=== PATIENT | female | born 2000 | race American Indian/Alaskan Native ===

== ENCOUNTER 2020-09-06 12:24 | Emergency (ER) | payer MEDICAID ==
--- NOTE | 2020-09-06 13:21 | Emergency Department Report ---
ED N/V/D HPI - General Stated complaint: FAILURE TO THRIVE Time Seen by Provider: 09/06/20 13:17 Source: EMS - History of Present Illness Initial comments: 20-year-old female, history of cyclical vomiting syndrome, failure to thrive, depression, bipolar disorder, presents to ER for evaluation. Patient went to her psychiatrist's office but then subsequently refused to answer any of his questions. Patient was sent to the ED after being placed on a 1013 by her psychiatrist. Patient is currently moaning very loudly, able to be heard throughout the ER, and, is refusing to answer any questions. Patient's behavioral aide, Donovan Masterson, is here at bedside. She states this is normal behavior for patient whenever she comes to the ER. States patient has verbalized suicidal ideation and wanting to . Patient has been refusing to eat and refusing IV hydration. Behavioral aid states that patient has had feeding tubes in the past. Patient experiences vomiting and abdominal pain secondary to her cyclical vomiting syndrome. After arrival of her behavioral aide, Donovan, patient has stopped moaning. She appears to be texting or using her cell phone in some capacity. Patient refuses to answer any of my questions even in the presence of her behavioral aide. Her aide did tell me that patient requested some ice chips. She also told me that patient has not been taking her bipolar medications. MD complaint: nausea, vomiting, abdominal pain -: This morning ED Review of Systems ROS: Stated complaint: FAILURE TO THRIVE Other details as noted in [facility] ED Course Vital Signs 09/06/20 14:06 Temperature 98.8 F Pulse Rate 104 H Respiratory 20 Rate Blood Pressure 102/76 [Left] O2 Sat by Pulse 97 Oximetry Critical care attestation.: If time is entered above; I have spent that time in minutes in the direct care of this critically ill patient, excluding procedure time. ED Disposition Condition: Stable
--- NOTE | 2020-09-06 14:14 | Emergency Department Report ---
<TOOVINHGINNY Sanchez - Last Filed: 09/06/20 15:51> ED Psych HPI - General Chief Complaint: Nausea/Vomiting/Diarrhea Stated Complaint: FAILURE TO THRIVE Time Seen by Provider: 09/06/20 13:17 Source: EMS Mode of arrival: Stretcher - History of Present Illness Initial Comments: 20-year-old female, history of cyclical vomiting syndrome, failure to thrive, de pression, bipolar disorder, presents to ER for evaluation. Patient went to her psychiatrist's office but then subsequently refused to answer any of his questions. Patient was sent to the ED after being placed on a 1013 by her psychiatrist. Patient is currently moaning very loudly, able to be heard throughout the ER, and, is refusing to answer any questions. Patient's behavioral aide, Donovan Masterson, is here at bedside. She states this is normal behavior for patient whenever she comes to the ER. States patient has verbalized suicidal ideation and wanting to . Patient has been refusing to eat and refusing IV hydration. Behavioral aid states that patient has had feeding tubes in the past. Patient experiences vomiting and abdominal pain secondary to her cyclical vomiting syndrome. After arrival of her behavioral aide, Donovan, patient has stopped moaning. She appears to be texting or using her cell phone in some capacity. Patient refuses to answer any of my questions even in the presence of her behavioral aide. Her aide did tell me that patient requested some ice chips. She also told me that patient has not been taking her bipolar medications. MD Complaint: suicidal ideation -: unknown Associated Psychiatric Symptoms: suicidal ideation Improves With: none Worsens With: none Context: not taking psychiatric, significant life stressor Associated Symptoms: nausea, vomiting Treatments Prior to Arrival: placed on mental he - Related Data Allergies Allergy/AdvReac Type Severity Reaction Status Date / Time No Known Allergies Allergy Unverified 09/06/20 17:13 ED Review of Systems Comment: Unobtainable due to pts medical conditions (pt refusing to answer any of my questions) Psychiatric: depression, suicidal thoughts ED Past Medical Hx - Past Medical History Previous Medical History?: Yes Hx Psychiatric Treatment: Yes (SI) - Social History Smoking Status: Unknown if ever smoked ED Physical Exam - General Limitations: No Limitations General appearance: alert, in no apparent distress, other (appears frail; pt is sucking her thumb) - Head Head exam: Present: atraumatic, normocephalic - Eye Eye exam: Present: normal appearance - ENT ENT exam: Present: mucous membranes moist - Neck Neck exam: Present: normal inspection - Respiratory Respiratory exam: Present: normal lung sounds bilaterally. Absent: respiratory distress - Cardiovascular Cardiovascular Exam: Present: normal rhythm, tachycardia - GI/Abdominal GI/Abdominal exam: Present: soft. Absent: distended, tenderness - Extremities Exam Extremities exam: Present: normal inspection - Neurological Exam Neurological exam: Present: alert, other (pt is moving all extremities; unable to evaluate orientation as she is refusing to speak) - Psychiatric Psychiatric exam: Present: flat affect - Skin Skin exam: Present: warm, dry, intact, normal color ED Course - Reevaluation(s) Reevaluation #1: 09/06/20 14:48 Patient now screaming and moaning again. Haldol 5 mg IM ordered. Reevaluation #2: 09/06/20 15:16 RN tells me that patient got up and drink water from the sink faucet in the room, then vomited. I had previously advised patient that we would give her some ice chips but no liquids to drink at this time. Patient drank from the sink anyway. Zofran ordered. Reevaluation #3: 09/06/20 15:51 Patient moaning and yelling again, being uncooperative. Laying upside down in stretcher. Removing her cardiac leads, BP cuff, and O2 sat monitor. No change with Haldol administration earlier. Will give Geodon as patient will need to be cooperative for CT scan. ED Medical Decision Making - Lab Data Result diagrams: 09/06/20 14:20 09/06/20 14:20 - Medical Decision Making Patient sent from psychiatrist office for her depression, suicidal ideations and refusal to eat or drink. Here in the ED, patient actually drank out of the sink when she was told that she would not be given anything to drink at that time, only a few ice chips. Labs are unremarkable. Patient's initial vital signs were normal, when she was calm. After patient's behavioral aide left her bedside, patient began to yell and scream again, thus becoming tachycardic. While yelling, patient is observed checking her cell phone. Labs do not show a ny evidence of dehydration from prolonged vomiting. CT abdomen/pelvis has been ordered. Patient will be signed out to Dr Abebe to f/u on CT results. If CT shows no acute findings, I feel that pt will be medically clear for mental health evaluation. ED Disposition Clinical Impression: Suicidal ideation, Psychogenic vomiting Disposition: DC-01 TO HOME OR SELFCARE Condition: Stable Additional Instructions: OUTPATIENT MENTAL HEALTH RESOURCES [facility], [facility] Joi Gilbert MD: [address] [place] [address] [place] [address] [facility]: [employer] [facility] [address] [place] [address] [place] [address] [phone] [facility]: [facility] Healthcare: [address] [facility] [address] [facility] [place] [address] [facility] [address] [facility]: Alessandro Quiros MD: [address] [facility] [address] [facility] [address] [facility]: [address] [place], [place] [id number] [phone] PR CRISIS AND ACCESS LINE: Referrals: DAVID MARTINEZ [Other] - 3-5 Days [place] GARCIA MD [Staff Physician] - 3-5 Days <LEE NOEL - Last Filed: 09/09/20 12:05> ED Review of Systems ROS: Stated complaint: FAILURE TO THRIVE Other details as noted in HPI ED Course Vital Signs 09/06/20 09/06/20 09/06/20 14:01 14:06 14:09 Temperature 98.8 F 98.8 F Pulse Rate 104 H 104 H Respiratory 22 20 20 Rate Blood Pressure 104/64 Blood Pressure 102/76 [Left] O2 Sat by Pulse 98 97 98 Oximetry 09/06/20 09/06/20 09/06/20 14:46 15:00 15:46 Temperature Pulse Rate 149 H 133 H 129 H Respiratory 22 22 13 Rate Blood Pressure 115/87 115/87 106/75 Blood Pressure [Left] O2 Sat by Pulse 99 88 96 Oximetry 09/06/20 09/06/20 09/06/20 16:00 16:16 16:30 Temperature Pulse Rate 125 H 128 H 108 H Respiratory 11 L 18 15 Rate Blood Pressure 91/73 135/86 135/86 Blood Pressure [Left] O2 Sat by Pulse 97 97 97 Oximetry 09/06/20 09/06/20 09/06/20 16:46 17:00 17:16 Temperature Pulse Rate 110 H 139 H 142 H Respiratory 15 16 13 Rate Blood Pressure 135/86 135/86 133/82 Blood Pressure [Left] O2 Sat by Pulse 99 100 99 Oximetry 09/06/20 09/06/20 09/06/20 17:30 17:46 18:16 Temperature Pulse Rate 112 H 117 H 113 H Respiratory 13 15 13 Rate Blood Pressure 133/82 133/82 123/74 Blood Pressure [Left] O2 Sat by Pulse 98 99 97 Oximetry 09/06/20 09/06/20 09/06/20 18:30 18:46 19:00 Temperature Pulse Rate 119 H 108 H 105 H Respiratory 15 13 14 Rate Blood Pressure 123/74 133/82 133/82 Blood Pressure [Left] O2 Sat by Pulse 100 98 97 Oximetry 09/06/20 09/06/20 09/06/20 19:37 19:46 20:00 Temperature Pulse Rate 135 H 103 H 101 H Respiratory 13 12 Rate Blood Pressure 116/60 116/60 116/60 Blood Pressure [Left] O2 Sat by Pulse 99 98 98 Oximetry 09/06/20 09/06/20 09/06/20 20:16 20:30 20:46 Temperature Pulse Rate 115 H 99 H 119 H Respiratory 17 14 21 Rate Blood Pressure 136/86 136/86 122/81 Blood Pressure [Left] O2 Sat by Pulse 98 97 99 Oximetry 09/06/20 09/06/20 09/07/20 21:00 21:17 03:35 Temperature 98.3 F Pulse Rate 115 H 99 H Respiratory 14 16 Rate Blood Pressure 122/81 122/81 Blood Pressure 121/80 [Left] O2 Sat by Pulse 98 73 L 99 Oximetry 09/07/20 09/07/20 09/08/20 09:13 19:35 08:57 Temperature 98.4 F 98.2 F 97.9 F Pulse Rate 90 90 81 Respiratory 20 16 18 Rate Blood Pressure Blood Pressure 143/83 123/73 112/58 [Left] O2 Sat by Pulse 98 97 97 Oximetry 09/08/20 09/09/20 19:45 06:30 Temperature 98.7 F 97.6 F Pulse Rate 80 85 Respiratory 18 18 Rate Blood Pressure Blood Pressure 100/64 97/54 [Left] O2 Sat by Pulse 99 99 Oximetry ED Medical Decision Making - Lab Data Result diagrams: 09/06/20 14:20 09/06/20 14:20 - Medical Decision Making I evaluated Arti. She is awake alert. She does not have any nausea. She has not vomited in 24 hours. I read my colleague's comprehensive note. On yesterday ED physician spoke with Shelli GI specialist and Lazaro dumpling machine operator. Patient has had NG tube in the past. However she did not tolerate the NG tube. Patient has an eating disorder which has been previously diagnosed and documented. Patient is quite educated insightful and honest. She states that she desires gastrostomy tube. She will follow-up outpatient with GI specialist. She is grateful and anxious to be discharged. She denies suicidal homicidal ideation. Critical care attestation.: If time is entered above; I have spent that time in minutes in the direct care of this critically ill patient, excluding procedure time. ED Disposition Is pt being admited?: No Does the pt Need Aspirin: No
[2020-09-06] MEDS ORDERED: SODIUM CHLORIDE 0.9% 1000 ML 1,000 ML IV ONE (14:17)
[2020-09-06] MEDS ORDERED: HALOPERIDOL LACTATE 5 MG/1 ML INJ IM ONE (14:47)
[2020-09-06 14:58] LABS: Basophils # (Auto) 0.1 K/mm3 (0.0-0.1); Basophils % (Auto) 0.6 % (0.0-1.8); Eosinophils % (Auto) 0.1 % (0.0-4.3); Hematocrit 45.1 % (30.3-42.9); Lymphocytes # (Auto) 2.7 K/mm3 (1.2-5.4); Lymphocytes % (Auto) 25.6 % (13.4-35.0); Mean Corpuscular HGB Conc 33 % (30-34); Mean Corpuscular Volume 87 fl (79-97); Monocytes # (Auto) 0.9 K/mm3 (0.0-0.8); Monocytes % (Auto) 8.1 % (0.0-7.3); Platelet Count 385 K/mm3 (140-440); Red Blood Count 5.19 M/mm3 (3.65-5.03); Red Cell Distribution Width 14.5 % (13.2-15.2)
[2020-09-06 15:03] LABS: Alanine Aminotransferase 9 units/L (7-56); Albumin 4.9 g/dL (3.9-5); Bilirubin,Direct 0.2 mg/dL (0-0.2)
[2020-09-06] MEDS ORDERED: ONDANSETRON 4 MG/2 ML INJ IV ONE (15:18)
[2020-09-06 15:31] LABS: Blood Urea Nitrogen 19 mg/dL (7-17); Calcium 9.9 mg/dL (8.4-10.2); Hemolysis Index 77
[2020-09-06 15:36] LABS: BUN/Creatinine Ratio 27
[2020-09-06] MEDS: ZIPRASIDONE MESYLATE 20 MG VIAL IM PRN (16:00)
[2020-09-06 18:28] LABS: Amphetamine Screen,Urine Negative; Benzodiazepines Screen,Urine Negative; Cannabinoid Screen,Urine Negative; Cocaine Screen,Urine Negative; Methadone Screen,Urine Negative; Opiate Screen,Urine Negative
--- NOTE | 2020-09-06 19:46 | Cat Scan Report ---
CT ABDOMEN AND PELVIS WITH CONTRAST HISTORY: Vomiting and abdominal pain COMPARISON: None TECHNIQUE: Routine abdominal and pelvic CT exam performed following intravenous contrast administrat ion.. All CT scans at this location are performed using CT dose reduction for ALARA by means of autom ated exposure control. FINDINGS: CT ABDOMEN: Lung Bases: No significant abnormality. Liver: No significant abnormality. Biliary: No significant abnormality. Spleen: No significant abnormality. Unenlarged. Pancreas: No significant abnormality. Adrenals: No significant abnormality. Kidneys: No significant abnormality. Lymphatics: No lymphadenopathy. Vasculature: No significant abnormality. Bowel/Peritoneum: No significant abnormality. No free air. No free fluid. Appendix not visualized. No pericecal inflammation. CT PELVIC: : No significant abnormality. Lymphatics: No lymphadenopathy. Osseous Structures: No aggressive appearing osseous lesions. Additional Findings: None IMPRESSION: 1. No acute findings. Signer Name: Johnny Heller MD Signed: 09/06/2020 7:41 PM Workstation Name: [id number]
[2020-09-06] MEDS ORDERED: fentaNYL 100 MCG/2 ML INJ IM ONE (23:41)
[2020-09-06] MEDS ORDERED: ONDANSETRON 4 MG/2 ML INJ IM ONE (23:42)
[2020-09-07] MEDS ORDERED: DEXTROSE/DEXTRIN/MALTOSE 24 GM CARB PER 31 GM TUBE ONE (05:25)
[2020-09-07] MEDS ORDERED: WATER FOR INJ Sterile (PF) 10 ML ONE ×2 (05:26→16:10)
[2020-09-07] MEDS: ZIPRASIDONE MESYLATE 20 MG VIAL IM PRN ×2 (05:33→16:22)
[2020-09-07] MEDS: ONDANSETRON 4 MG ODT TAB PO ONE ×3 (05:33→05:44)
--- NOTE | 2020-09-07 08:43 | Consultation ---
History of Present Illness - Reason for Consult Consult date: 09/07/20 Reason for consult: MHE Requesting physician: DEA DEAN - History of Present Psychiatric Illness Per ED PROVIDER: 20-year-old female, history of cyclical vomiting syndrome, failure to thrive, depression, bipolar disorder, presents to ER for evaluation. Patient went to her psychiatrist's office but then subsequently refused to answer any of his questions. Patient was sent to the ED after being placed on a 1013 by her psychiatrist. Patient is currently moaning very loudly, able to be heard throughout the ER, and, is refusing to answer any questions. Patient's behavioral aide, Donovan Masterson, is here at bedside. She states this is normal behavior for patient whenever she comes to the ER. States patient has verbalized suicidal ideation and wanting to . Patient has been refusing to eat and refusing IV hydration. Behavioral aid states that patient has had feeding tubes in the past. Patient experiences vomiting and abdominal pain secondary to her cyclical vomiting syndrome. After arrival of her behavioral aide, Donovan, patient has stopped moaning. She appears to be texting or using her cell phone in some capacity. Patient refuses to answer any of my questions even in the presence of her behavioral aide. Her aide did tell me that patient requested some ice chips. She also told me that patient has not been taking her bipolar medications. PSYCH HPI Patient seen in the room patient is seen making humming sounds, throwing up in a green plastic bag and not communicating/refusing to communicate at this moment. PAST PSYCHIATRIC HISTORY n/a PAST MEDICAL HISTORY: n/a Family Psychiatric History: None reported or documented SOCIAL HISTORY n/a REVIEW OF SYSTEMS ROS cannot be reliably obtained from the patient due to her confusion MENTAL STATUS EXAMINATION General Appearance and Behavior: Age appropriate, good hygiene, wearing appropriate clothes, good eye contact, uncooperative with questioning. Cooperation: Withdrawn Psychomotor Behavior: unremarkable and within normal limits Mood: Neutral Affect and affective range: Flat Thought Process:N/A Thought Content: N/A Speech: Normal volume, Regular rate and rhythm Intellectual Functioning: N/A Suicidal Ideation: N/A l Homicidal Ideation: N/A Impulse Control: Impaired Insight and Judgment: Impaired Memory: N/A Attention: Normal, Orientation: Alert Diagnoses: Schizoaffective disorder Treatment Plan Patient with multiple psychiatric issues, presenting with failure to thrive refusal to eat. Patient caregiver reports patient voiced suicidal intention. Patient needs both medical and psychiatric management at this time, due to her refusal to eat. MEDICATIONS: Risks, benefits and alternatives of medications discussed with the patient, questions answered and consent obtained from patient. PSYCHOTHERAPY: Supportive psychotherapy provided MEDICAL: Per primary team DELIRIUM PRECAUTIONS: Please re-orient patient frequently, keep lights on during the day, and minimize benzodiazepines and opiates as these medications could worsen patient's confusion. DIRECTOR COMMUNITY ORGANIZATION DISPOSITION: Recommending psychiatric admission but patient may also need medical follow-up if refusal to eat is persistent at this time. Case discussed with Dr. Cast who agrees with current disposition LEGAL STATUS: 1013 FOLLOW-UP: Will follow Thank you for the consult. Please contact with any questions and/or concerns. Medications and Allergies Allergies Allergy/AdvReac Type Severity Reaction Status Date / Time No Known Allergies Allergy Unverified 09/06/20 17:13 Active Meds: Active Medications Ziprasidone (Ziprasidone Mesylate 20 Mg Vial) 10 mg IM ONCE PRN PRN Reason: Agitation Last Admin: 09/07/20 05:33 Dose: 10 mg Documented by: Mental Status Exam - Vital signs Last Vital Signs Temp 98.3 F 09/07/20 03:35 Pulse 99 H 09/07/20 03:35 Resp 16 09/07/20 03:35 BP 121/80 09/07/20 03:35 Pulse Ox 99 09/07/20 03:35 Results Result Diagrams: 09/06/20 14:20 09/06/20 14:20 Abnormal lab results 09/06/20 09/06/20 09/06/20 Range/Units 14:20 14:20 14:20 RBC 5.19 H (3.65-5.03) M/mm3 Hgb 15.0 H (10.1-14.3) gm/dl Hct 45.1 H (30.3-42.9) % Sutter % (Auto) 8.1 H (0.0-7.3) % Sutter # (Auto) 0.9 H (0.0-0.8) K/mm3 Chloride 94.8 L (98-107) mmol/L BUN 19 H (7-17) mg/dL Salicylates 0.3 L (2.8-20.0) mg/dL Acetaminophen (10.0-30.0) ug/mL 09/06/20 Range/Units 14:20 RBC (3.65-5.03) M/mm3 Hgb (10.1-14.3) gm/dl Hct (30.3-42.9) % Sutter % (Auto) (0.0-7.3) % Sutter # (Auto) (0.0-0.8) K/mm3 Chloride (98-107) mmol/L BUN (7-17) mg/dL Salicylates (2.8-20.0) mg/dL Acetaminophen 5.0 L (10.0-30.0) ug/mL All other labs normal.
[2020-09-07] MEDS ORDERED: LORazepam 2 MG/ML VIAL IM PRN (17:00)
[2020-09-07] MEDS ORDERED: HALOPERIDOL LACTATE 5 MG/1 ML INJ IM PRN (17:00)
[2020-09-07] MEDS ORDERED: DEXTROSE 50% IN WATER (25GM) 50 ML VIAL IV PRN (17:00)
--- NOTE | 2020-09-07 17:03 | Event Note ---
Date: 09/07/20 The patient was evaluated in the emergency department for symptoms described in the history of present illness. He/she was evaluated in the context of the global COVID-19 pandemic, which necessitated consideration that the patient might be at risk for infection with the virus that causes COVID-19. Institutional protocols and algorithms that pertain to the evaluation of patients at risk for COVID-19 are in a state of rapid change based on information released by regulatory bodies including the CDC and federal and state organizations. These policies and algorithms were followed during the patient's care in the emergency department. Please note that these policies, procedures and recommendations changed on a rapid basis. [id number] evaluation performed. I am peripherally familiar with this patient. I was present when this patient was present yesterday and under the care of Dr. Adkins. The patient was medically cleared yesterday. Patient throwing herself on the floor, not hitting her head, requiring multiple personnel to lift her up, yelling, thrashing around, not following commands, not responding to verbal techniques, show of force, or de-escalation techniques. She required initiation of seclusion precautions for safety of patient and staff. Patient at the moment breathing spontaneously, moving 4 extremities, agitated, but her presentation today appears to be similar from yesterday. As needed medications ordered. Accu-Chek every 4 hours ordered. As needed dextrose ordered.
--- NOTE | 2020-09-08 10:59 | Progress Note ---
Subjective - Reason for Consult Consult date: 09/08/20 Reason for consult: MHE Requesting physician: RAYRAY MIRANDA - Chief Complaint Chief complaint: PSYCH HPI Patient seen in the room, covered up in cloths, is alert but not willing to communicate, does not appear to be catatonic, seems to be able to control her behavior and she voiced "no" when i attempt to get the bed covers over her head. PAST PSYCHIATRIC HISTORY n/a PAST MEDICAL HISTORY: n/a Family Psychiatric History: None reported or documented SOCIAL HISTORY n/a REVIEW OF SYSTEMS ROS cannot be reliably obtained from the patient due to her confusion MENTAL STATUS EXAMINATION General Appearance and Behavior: Age appropriate, good hygiene, wearing appropriate clothes, good eye contact, uncooperative with questioning. Cooperation: Withdrawn Psychomotor Behavior: unremarkable and within normal limits Mood: Neutral Affect and affective range: Flat Thought Process:N/A Thought Content: N/A Speech: Normal volume, Regular rate and rhythm Intellectual Functioning: N/A Suicidal Ideation: N/A l Homicidal Ideation: N/A Impulse Control: Impaired Insight and Judgment: Impaired Memory: N/A Attention: Normal, Orientation: Alert Diagnoses: Schizoaffective disorder Treatment Plan Patient with multiple psychiatric issues, presenting with failure to thrive refusal to eat. Patient caregiver reports patient voiced suicidal intention. Patient needs both medical and psychiatric management at this time, due to her refusal to eat. May need inpatient medical with psych follow if continues to not eat or drink as placement would be difficult primarily for that reason. MEDICATIONS: Risks, benefits and alternatives of medications discussed with the patient, questions answered and consent obtained from patient. PSYCHOTHERAPY: Supportive psychotherapy provided MEDICAL: Per primary team DELIRIUM PRECAUTIONS: Please re-orient patient frequently, keep lights on during the day, and minimize benzodiazepines and opiates as these medications could worsen patient's confusion. SENIOR LEAD JAVA DEVELOPER DISPOSITION: Recommending psychiatric admission but patient may also need medical follow-up if refusal to eat is persistent at this time. Case discussed with Dr. Cast who agrees with current disposition LEGAL STATUS: 1013 FOLLOW-UP: Will follow Thank you for the consult. Please contact with any questions and/or concerns. Mental Status Exam - Vital signs Last Vital Signs Temp 97.9 F 09/08/20 08:57 Pulse 81 09/08/20 08:57 Resp 18 09/08/20 08:57 BP 112/58 09/08/20 08:57 Pulse Ox 97 09/08/20 08:57
[2020-09-08] MEDS ORDERED: ONDANSETRON 4 MG ODT TAB PO ONE (17:33)
--- NOTE | 2020-09-08 18:03 | Emergency Department Report ---
Blank Doc - Documentation Documentation: One 8-year-old female currently on a 1013. I was told that her state appointed guardian Jenn Morales was under the impression that the patient should be transferred for placement of a GJ tube at [facility]. Therefore, I spoke with Dr. Holloway who is the director of financial planning client resolution specialist for [facility]. He happened to be the director of financial planning at last cared for the patient in March 2020 when she was admitted. She has had multiple previous admissions to [facility] as well. At the time of her admission a G-tube or a J-tube was not recommended. An NG tube was not recommended. In fact, the patient had a history of pulling out previous NG tube. He stated that the patient has an eating disorder in combination with other psychiatric diagnoses. She said to have a history of cyclic vomiting as well. However, he describes it mostly as an eating disorder. He was quite familiar with the patient. He stated that he does not recommend that the patient have tube placement. He did not recommend that patient be transferred to [facility]. I informed Kathleen the mental health sole assessor of this fact. She spoke to Jenn Morales again who now referred to us to [facility] and is the group that wants to place a feeding tube in the patient. I paged [facility] and spoke to Dr. Burkett. He did review the patient's records. Patient is apparently from the [facility]. She has seen a dietitian in the clinic up there. However, she did not show up for her appointment in March 2020 to see the director of financial planning. They do not have any indication that there is a recommendation for any sort of enteral feeding on this patient. I did see and examine the patient. She is calm and appears euvolemic. I had given her a Zofran earlier for nausea. She has not recently vomited. I have reviewed her vital signs and laboratory studies. I do not find any emergency indication for GI consultation or an apparent procedure. I spoke again with Kathleen. I can discern no indications for emergency transfer of this patient on a medical basis. She remains medically appropriate for psychiatric admission if involuntary confinement is recommended by psychiatry. Otherwise, she would be appropriate for discharge and follow-up with [facility] as discussed with gastroenterology above.
[2020-09-09] MEDS ORDERED: ZOLPIDEM 5 MG TAB PO ONE (01:48)
[2020-09-09 06:44] VITALS: BP 97/54
--- NOTE | 2020-09-09 11:20 | Progress Note ---
Subjective - Reason for Consult Consult date: 09/09/20 Reason for consult: SI - Chief Complaint Chief complaint: Per Nurse: The patient has been resting quietly with no complaints or SI/HI. The patient was seen today, she is calm, and cooperative. She is a/o x 3. She is conversational. The patient says she was brought to the ER because "I refused to talk to my neuropsych doctor." She says "so he made me a 1013. I just didn't want to talk to him." She says she has a problem keeping food down. The patient says "I want to eat, but I have psychogenic vomiting syndrome." She says "I like food but it's hard to keep it down." The patient says "but I do not stop eating to try and kill myself." She denies SI/HI or any fear or feelings of endangerment. She says "I'm not going to hurt myself." The patient also denies hallucinations of any kind. REVIEW OF SYSTEMS Constitutional: Negative for weight loss ENT: Negative for stridor Respiratory: Negative for cough or hemoptysis All other systems reviewed and are negative MENTAL STATUS EXAMINATION General Appearance and Behavior: Age appropriate, good hygiene, wearing appropriate clothes, good eye contact, calm and cooperative with questioning. Cooperation: cooperating, engaged Psychomotor Behavior: unremarkable and within normal limits Mood: okay Affect and affective range: congruent with stated mood Thought Process: goal oriented Thought Content: None Speech: Normal volume, Regular rate and rhythm Suicidal Ideation: Denies Homicidal Ideation: Denies Hallucinations: Denies Delusions: None elicited Impulse Control: Unimpaired Insight and Judgment: Limited Memory: Normal Attention: Normal Orientation: Alert/Oriented Diagnoses: Schizoaffective disorder Treatment Plan d/c 1013 Continue previously prescribed medications Risks, benefits and alternatives of medications discussed with the patient, questions answered and consent obtained from patient. PSYCHOTHERAPY: Supportive psychotherapy provided MEDICAL: Per primary team DELIRIUM PRECAUTIONS: Please re-orient patient frequently, keep lights on during the day, and minimize benzodiazepines and opiates as these medications could worsen patient's confusion. DISPOSITION: Do not recommending acute psychiatric admission at this time Will sign off. Thank you for the consult. Please contact with any questions and/or concerns. Case staffed with Dr. Cast Mental Status Exam - Vital signs Last Vital Signs Temp 97.6 F 04/09/21 06:30 Pulse 85 09/09/20 06:30 Resp 18 09/09/20 06:30 BP 97/54 09/09/20 06:30 Pulse Ox 99 09/09/20 06:30
== END 2020-09-09 15:45 ==
LOC: EEVIPCON 12:24 → ED 12:24
DX: F50.89 Other specified eating disorder (principal); R45.851 Suicidal ideations; F31.9 Bipolar disorder, unspecified; Z20.822 Contact with and (suspected) exposure to COVID-19
CPT/HCPCS: 36415; 74177; 80048; 80076; 80307; 84703; 85025; 96361; 96372; 96374; 99285; J1630; J2405; J3010; J3486; J7030; Q9967; U0003; 80320; G0480; Q0162